=== PATIENT | female | born 1990 | race Caucasian/White ===

== ENCOUNTER 2016-09-13 19:21 | Emergency (ER) | payer OTHER ==
[2016-09-13 20:36] VITALS: BP 149/92
[2016-09-13] MEDS ORDERED: DOXYcycline CAP(*) 100 MG PO ONE (21:23)
--- NOTE | 2016-09-13 21:24 | UC ---
Skin Complaint HPI - HPI Summary HPI Summary: 25 yo female with onset of 4 pustules on right ankle weeks ago has spread not itchy no f/c no hx MRSA - History of Current Complaint Chief Complaint: UC Time Seen by Provider: 09/13/16 21:19 Stated Complaint: WOUND ON ANKLE Hx Last Menstrual Period: 3 yrs ago Onset/Duration: Gradual Onset, Lasting Weeks Skin Exposure Onset/Duration: Minutes Ago Timing: Constant Onset Severity: Mild Current Severity: Mild Pain Intensity: 4 Pain Scale Used: 0-10 Numeric Location: Other - right ankle Character: Swelling, Redness, Raised, Painful Aggravating: Touch Alleviating: Nothing - Allergy/Home Medications Allergies/Adverse Reactions: Allergies Allergy/AdvReac Type Severity Reaction Status Date / Time Eggs or Egg-derived Products Allergy Severe ITCHING, Verified 09/13/16 20:36 RED SPOTS Penicillins Allergy Severe Anaphylatic Verified 09/13/16 20:36 Shock Home Medications: Home Medications Loratadine [Claritin] 09/13/16 [History Confirmed 09/13/16] Ranitidine HCl [Zantac 150 Maximum Streng] 09/13/16 [History] Review of Systems Constitutional: Negative Skin: Rash Eyes: Negative ENT: Negative Respiratory: Negative Cardiovascular: Negative Gastrointestinal: Negative Genitourinary: Negative Motor: Negative Neurovascular: Negative Musculoskeletal: Negative Neurological: Negative Psychological: Negative All Other Systems Reviewed And Are Negative: Yes PMH/Surg Hx/FS Hx/Imm Hx Previously Healthy: Yes - Surgical History Surgical History: None - Family History Known Family History: Positive: Hypertension, Other - psoriasis - Social History Alcohol Use: None Substance Use Type: None Smoking Status (MU): Former Smoker Type: Cigarettes Amount Used/How Often: 1 ppd Length of Time of Smoking/Using Tobacco: 6 YEARS Have You Smoked in the Last Year: Yes - Immunization History Most Recent Influenza Vaccination: declined Most Recent Tetanus Shot: 07/06/15 Most Recent Pneumonia Vaccination: not indicated Physical Exam Triage Information Reviewed: Yes Appearance: Well-Appearing, No Pain Distress, Well-Nourished Vital Signs: Initial Vital Signs Temp 98.1 F 09/13/16 20:32 Pulse 76 09/13/16 20:32 Resp 18 09/13/16 20:32 BP 149/92 09/13/16 20:32 Pulse Ox 100 09/13/16 20:32 Vital Signs Reviewed: Yes Eyes: Positive: Conjunctiva Clear ENT: Positive: Hearing grossly normal. Negative: Nasal congestion, Nasal drainage, Trismus, Muffled/hoarse voice Neck: Positive: Supple, Nontender Respiratory: Positive: Lungs clear, Normal breath sounds, No respiratory distress, No accessory muscle use Cardiovascular: Positive: RRR, No Murmur Neurological: Positive: Alert Psychological Exam: Normal Skin: Positive: Other - see image Course/Dx - Diagnoses Provider Diagnoses: impetigo Discharge - Discharge Plan Condition: Stable Disposition: HOME Prescriptions: DOXYcycline CAP(*) [DOXYcycline 100MG CAP(*)] 100 mg PO BID #18 cap Mupirocin 2% OINT* [Bactroban 2 % Oint*] 1 applic TOPICAL TID #1 tube Patient Education Materials: Impetigo (ED) Referrals: Zoe Ruggiero MD [Primary Care Provider] - 5 Days (if nto better) Images Feet (Multiple View): 1 - red/raised/crusted. no pus
== END 2016-09-13 21:50 | disposition home or self-care (01) ==
LOC: UCEAST 19:21
DX: L01.00 Impetigo, unspecified (principal); Z88.0 Allergy status to penicillin; Z87.891 Personal history of nicotine dependence
CPT/HCPCS: 99212; A9270-GY; G0463